=== PATIENT | female | born 1990 | race Caucasian/White ===

== ENCOUNTER 2024-09-12 21:57 | Emergency (ER) | payer OTHER, SELFPAY ==
[2024-09-12 21:59] VITALS: BP 124/75
[2024-09-12 22:27] LABS: % Basophils 0.5 % (0-2); % Immature Granulocytes 0.3 % (0-0.5); % Lymphocytes 17.9 % (20.5-51.1); % Monocytes 8.3 % (1.7-9.3); Absolute Basophils 0.1 10^3/uL (0-0.2); Absolute Eosinophils 0.2 10^3/uL (0-0.7); Absolute Lymphocytes 2.1 10^3/uL (1.2-3.4); Absolute Neutrophils 8.2 10^3/uL (1.4-6.5); Hematocrit 43.4 % (37.0-47.0); Hemoglobin 14.3 g/dL (12.0-16.0); Mean Corp Hgb Conc. 32.9 g/dL (33.0-37.0); Mean Corpuscular Hgb 28.6 pg (27.0-31.0); Mean Corpuscular Volume 86.8 fL (81.0-99.0); Mean Platelet Volume 9.7 fL (7.4-10.4); Nucleated Red Blood Cells % 0 %; Platelet Count 401 10^3/uL (130-400); Red Cell Dist. Width 14.3 % (11.5-14.5); White Blood Cell Count 11.6 10^3/uL (4.8-10.8)
[2024-09-12 22:43] LABS: HCG, Serum Qualitative Screen Negative
[2024-09-12 22:46] LABS: ALT (SGPT) 15 U/L (0-35); AST (SGOT) 23 U/L (14-36); Albumin 3.8 g/dl (3.5-5.0); Alkaline Phosphatase 102 U/L (38-126); Blood Urea Nitrogen 6 mg/dl (7-17); Calcium 9.5 mg/dl (8.4-10.2); Carbon Dioxide 27 mmol/L (22-30); Chloride 105 mmol/L (98-107); Glucose 105 mg/dl (70-99); Potassium 4.7 mmol/L (3.5-5.1); Sodium 137 mmol/L (135-145); Total Bilirubin 0.4 mg/dl (0.2-1.3); Total Protein 6.5 g/dl (6.3-8.2); eGFR > 60.00
--- NOTE | 2024-09-12 22:51 | ED.GENMED ---
History of Present Illness
General
Chief Complaint: Urinary Symptoms
Source: patient
Exam Limitations: none
Time Seen by Provider: 09/12/24 22:45
Nursing documentation reviewed up to this point in time: agreed with
History of Present Illness
History of Present Illness:
Patient to ED iwth complaint of right flank pain. Symptoms started this past week but worsened today. Taking OTC AZO without relief. Denies fever/chills. Has had pyelonephritis in the past and feels here symptoms are similar. Brought to ED by
spouse for eval.
Past History
Past History
ED Past Medical History: None
Review of Systems
Review of Systems
Allergies reviewed?: Yes
All Other Systems: ROS reviewed and negative except as documented in HPI and ROS
Constitutional: Reports no symptoms
EENT: Reports no symptoms
Respiratory: Reports no symptoms
Cardiac: Reports no symptoms
ABD/GI: Reports no symptoms
: Reports flank pain
Musculoskeletal: Reports no symptoms
Skin: Reports no symptoms
Neurological: Reports no symptoms
Psychiatric: Reports no symptoms
Phy Exam
General Physical Exam
General Presentation: mild distress
General age: appears stated age
General Skin: warm and dry
General Habitus: normal
General Mental: alert
General Hydration: appears well hydrated
Gastrointestinal Exam
Gastrointestinal Exam: normal bowel sounds, non tender, soft, no organomegaly and cva tenderness (right)
Musculoskeletal Exam
Musculoskeletal Exam: full ROM and neuro vasc intact
Skin Exam
Skin Exam: normal color, warm/dry and no rash
Psychiatric Exam
Psychiatric Exam: normal mood/affect
Course
Orders/Labs/Results
Orders:
Orders
09/12/24 22:04
Test Result ONCE
09/12/24 22:08
Complete Blood Count/With Diff Urgent
Comprehensive Metabolic Panel Urgent
HCG, Serum Qualitative Screen Urgent
09/12/24 22:50
CT Abd/pel Without Iv Or Oral Urgent
Comment:
Reason For Exam: right flank pain
Bladder Scan- Treatment ONCE
Ketorolac [Toradol] 30 mg IV NOW STA
09/12/24 23:25
Urinalysis Reflex To Culture Urgent
Date Specimen was Collected: 09/12/24
Time Specimen was Collected: 22:53
Urine Microscopic Reflex Cult Urgent
Urine Culture Urgent
FABI Source: U
Specimen Description:
Date Specimen was Collected: 09/12/24
Time Specimen was Collected: 22:53
09/13/24 00:28
Ciprofloxacin HCl [Cipro] 500 mg PO NOW STA
09/13/24 00:29
Phenazopyridine HCl [Pyridium] 200 mg PO NOW STA
Abnormal Lab Results
09/12/24 09/12/24
22:08 23:25
WBC 11.6 H 10^3/uL
(4.8-10.8)
MCHC 32.9 L g/dL
(33.0-37.0)
Plt Count 401 H 10^3/uL
(130-400)
Absolute Neuts (auto) 8.2 H 10^3/uL
(1.4-6.5)
Absolute Monos (auto) 1.0 H 10^3/uL
(0.1-0.6)
Lymphocytes % 17.9 L %
(20.5-51.1)
BUN 6 L mg/dl
(7-17)
Glucose 105 H mg/dl
(70-99)
Ur Occult Blood Reflex 4+ A
(Negative)
Urine Nitrite (Reflex) Positive A
(Negative)
Leukocyte Esterase Rfl 3+ A
(Negative)
Urine WBC (Reflex) >100 A /HPF
(0-5)
Urine Bacteria (Reflex) Many A
(Negative)
Urine Albumin (Reflex) 3+ A
(Neg - Trace)
09/12/24 22:08
09/12/24 22:08
Vital Signs
Initial and Last Documented VS:
Initial Vital Signs
Temp Pulse Resp BP Pulse Ox
97.7 F 102 18 124/75 99
09/12/24 21:59 09/12/24 21:59 09/12/24 21:59 09/12/24 21:59 09/12/24 21:59
Last Documented Vital Signs
Temp Pulse Resp BP Pulse Ox
97.7 F 81 16 110/67 99
09/12/24 21:59 09/13/24 00:17 09/13/24 00:17 09/13/24 00:17 09/13/24 00:17
*Radiology
Radiology exam reviewed: radiology read reviewed
*Pulse Oximetry
Patient hypoxic: no
*Critical Care Note
Total Time (30-74mins, 75-104mins- exclusive of procedures): Not Applicable
Update Note
Update Note:
No evidence of obstruction, renal stones, pyelonephritis on CT. UTI reflected by UA. WIll place on course of cipro which was initiated in ED. SHe remains afebrile. SHe is discharged home and will follow with PCP. Given instructions on s/s to
return to ED and she is agreeable to plan.
ED Attending Note
-
Portions of this chart may have been created with voice recognition software.� Occasional wrong word or��sound alike� substitutions may have occurred due to the inherent limitations of voice recognition software.
Discharge Plan
Departure
Patient Disposition: Home (Routine Discharge)
Date of Disposition: 09/13/24
Time of Disposition: 00:29
Patient with high blood pressure during this ER visit?: No
Condition: Good
Covid-19: Not Applicable
Discharge Problem:
UTI (urinary tract infection)
Instructions: Urinary Tract Infection, Adult (DC)
Prescriptions:
New
ciprofloxacin HCl [Cipro] 500 mg tablet
500 mg PO BID Qty: 10 0RF
phenazopyridine [Pyridium] 200 mg tablet
200 mg PO TID PRN (Reason: Pain) Qty: 6 0RF
Referrals:
NONE,* [Family Provider] -
Activity Restrictions/Additional Instructions:
Return to the emergency department immediately for any changes in/worsening of your symptoms
Interventions
Interventions:
*Risk Screen - Suicide Last Done: 09/12/24 21:59
*General Assessment Last Done: 09/12/24 21:59
*Neglect/Abuse Screening Last Done: 09/12/24 21:59
*ED- Fall Risk Assessment Last Done: 09/12/24 22:03
*ED COVID-19 Vaccine History Last Done: 09/12/24 22:03
*Nursing Disposition Last Done: 09/13/24 00:40
ED-Female Genitourinary Assessment Last Done: 09/12/24 23:06
Discharge Date and Time
Discharge Date/Time: 09/13/24 00:40
Print Language: LATVIAN
[2024-09-12] MEDS: TORADOL 30 MG IV (23:11)
[2024-09-12 23:54] LABS: Urine Albumin 3+ (Neg - Trace); Urine Bilirubin Negative (Negative); Urine Character Cloudy (Clear); Urine Color Yellow; Urine Glucose Negative (Negative); Urine Ketone Negative (Negative); Urine Leukocyte 3+ (Negative); Urine Nitrite Positive (Negative); Urine Occult Blood 4+ (Negative); Urine Urobilinogen 1+ (Neg - 1+)
[2024-09-13 00:09] LABS: Urine Amorphous Seen; Urine Squamous Cell SEEN /LPF (Few); Urine White Cell >100 /HPF (0-5)
[2024-09-13 00:11] LABS: Urine Bacteria Many (Negative)
[2024-09-13 00:12] LABS: Urine Urothelial Cell SEEN /LPF (FEW)
[2024-09-13 00:17] VITALS: BP 110/67
[2024-09-13] MEDS: Pyridium 200 MG PO (00:36)
[2024-09-13] MEDS: CIPRO 500 MG PO (00:36)
== END 2024-09-13 00:40 | disposition home or self-care (01) ==
LOC: EMR 21:57
PROVIDERS: Emergency Medicine; Nurse Practitioner; EMERGENCY PHYSICIAN Emergency Medicine
DX: N30.00 Acute cystitis without hematuria (principal)
CPT/HCPCS: 96374; 99284; 74176; 80053; 81003; 81015; 84703; 85025; 87077; 87086

== ENCOUNTER 2024-10-04 21:58 | Emergency (ER) | payer OTHER, SELFPAY ==
[2024-10-04 22:01] VITALS: BP 162/97
[2024-10-05] VITALS: BP 131/90
--- NOTE | 2024-10-05 00:10 | ED.GENMED ---
History of Present Illness
General
Chief Complaint: Abdominal Symptoms
Source: patient
Exam Limitations: none
Time Seen by Provider: 10/05/24 00:09
Nursing documentation reviewed up to this point in time: agreed with
History of Present Illness
History of Present Illness:
34-year-old female presents emergency department complaining of nausea vomiting and diarrhea. Took Zofran today but vomited up. She had a syncope episode, and called EMS.
Past History
Past History
ED Past Medical History: Other (Kidney infections with sepsis)
ED Past Surgical History: None
Social History
Tobacco: Non-smoker
Alcohol: None
Drug: None
Review of Systems
Review of Systems
Allergies reviewed?: Yes
All Other Systems: Not applicable
Constitutional: Reports chills
EENT: Reports no symptoms
Respiratory: Reports no symptoms
Cardiac: Reports syncope
ABD/GI: Reports vomiting and diarrhea
: Reports no symptoms
Musculoskeletal: Reports no symptoms
Skin: Reports no symptoms
Neurological: Reports no symptoms
Endocrine: Reports no symptoms
Hematologic/Lymphatic: Reports no symptoms
Psychiatric: Reports no symptoms
Phy Exam
Physical Exam
Physical Exam:
Physical Exam
General: no apparent distress, not acutely ill
Neck: supple. no meningeal signs. normal posterior pharynx
Heart: s1/s2 regular rate and rhythm, no murmur. equal radial
pulses.
HEENT: Pupils equal round reactive to light, EOMI
Lungs: no acute respiratory distress. clear bilaterally
Abdomen: normal bowel sounds. not tender. no CVAT
Neuro: alert and oriented. no focal neurological deficits cranial nerves II through XII intact
Skin: no rash
Psychiatric: well kept. interactive and cooperative
Extremities: no edema. no calf tenderness. negative homans. good distal pulses
Course
Orders/Labs/Results
Orders:
Orders
10/04/24 22:05
Electrocardiogram (*1) Urgent
Reason for Study: Chest Pain
EKG- Treatment ONCE
10/04/24 23:53
Complete Blood Count/With Diff Urgent
Comprehensive Metabolic Panel Urgent
HCG, Serum Qualitative Screen Urgent
10/04/24 23:54
Test Result ONCE
10/05/24 00:09
Urinalysis Reflex To Culture Urgent
10/05/24 00:22
0.9% Sodium Chloride 1000 ml [Nss] 1,000 ml IV BOLUS
10/05/24 00:56
Promethazine [Phenergan] 25 mg 0.9% Sodium Chloride 50 ml [Nss] 50 ml IV NOW
Abnormal Lab Results
10/05/24
00:13
WBC 14.7 H 10^3/uL
(4.8-10.8)
Abs Immat Gran (auto) 0.3 H 10^3/uL
(0-0.05)
Absolute Neuts (auto) 13.3 H 10^3/uL
(1.4-6.5)
Absolute Lymphs (auto) 0.9 L 10^3/uL
(1.2-3.4)
Immature Gran % 1.8 H %
(0-0.5)
Neutrophils % 90.6 H %
(42.2-75.2)
Lymphocytes % 5.8 L %
(20.5-51.1)
Monocytes % 1.6 L %
(1.7-9.3)
Glucose 135 H mg/dl
(70-99)
10/05/24 00:13
10/05/24 00:13
Vital Signs
Initial and Last Documented VS:
Initial Vital Signs
Temp Pulse Resp BP Pulse Ox
97.8 F 62 18 162/97 98
10/04/24 22:01 10/04/24 22:01 10/04/24 22:01 10/04/24 22:01 10/04/24 22:01
Last Documented Vital Signs
Temp Pulse Resp BP Pulse Ox
97.8 F 74 20 133/88 97
10/04/24 22:01 10/05/24 01:30 10/05/24 01:30 10/05/24 01:00 10/05/24 01:30
MDM/Problems Addressed
Differential Diagnosis Includes:
Appendicitis, gastroenteritis
MDM/Problems Addressed:
34-year-old female with nausea vomiting diarrhea. Syncope episode, likely vasovagal. Normal EKG. Improved after IV fluids and Phenergan. Stable for discharge. Abdomen exam benign. Return precautions given. Phenergan prescription given.
*Pulse Oximetry
Patient hypoxic: no
*EKG
Interpreted by ED Provider?: Yes
EKG Intrepretation Date: 10/05/24
EKG Intrepretation Time: 22:10
Interpretation: normal
Comparison EKG: no comparison EKG present
Heart Rate: 65
Rate: normal
Rhythm: sinus
[place]: normal axis
Interval: normal interval
QRS Pattern: normal QRS
Ischemia: no ischemia
*Trade Clerk Interpretation
Rate: normal
Interpretation: normal
Heart Rate: 66
Rhythm: sinus
*Critical Care Note
Total Time (30-74mins, 75-104mins- exclusive of procedures): Not Applicable
Data Reviewed
Review of Other/Old Records Reveals: Labs (Prior UTI 09/12/2024)
Source: records
ED Attending Note
-
Portions of this chart may have been created with voice recognition software.� Occasional wrong word or��sound alike� substitutions may have occurred due to the inherent limitations of voice recognition software.
Discharge Plan
Departure
Patient Disposition: Home (Routine Discharge)
Date of Disposition: 10/05/24
Time of Disposition: 02:00
Patient with high blood pressure during this ER visit?: Yes
Condition: Good
Discharge Problem:
Nausea vomiting and diarrhea
Instructions: Diarrhea in teens and adults, Nausea and Vomiting, Adult (DC), BLOOD PRESSURE
Prescriptions:
New
promethazine 25 mg tablet
25 mg PO QID PRN (Reason: nausea and vomiting) Qty: 10 0RF
No Action
fluoxetine 40 mg Capsule
80 mg PO DAILY
clonazepam 1 mg Tablet
1 mg PO BID
promethazine 25 mg Tablet
25 mg PO DAILY PRN (Reason: nausea and vomiting)
propranolol 20 mg Tablet
10 mg PO DAILY
Referrals:
NONE,* [Family Provider] -
Activity Restrictions/Additional Instructions:
Return for any concerns. Follow-up with primary care in 3 to 5 days.
Interventions
Interventions:
*Risk Screen - Suicide Last Done: 10/04/24 22:03
*General Assessment Last Done: 10/04/24 22:03
*Neglect/Abuse Screening Last Done: 10/04/24 22:03
*ED COVID-19 Vaccine History Last Done: 10/04/24 22:03
EM-Kcptse-Lvgyztijlv Assessment Last Done: 10/05/24 00:15
Discharge Date and Time
Print Language: YI
[2024-10-05 00:29] LABS: % Basophils 0.2 % (0-2); % Immature Granulocytes 1.8 % (0-0.5); % Lymphocytes 5.8 % (20.5-51.1); % Monocytes 1.6 % (1.7-9.3); % Neutrophils 90.6 % (42.2-75.2); Absolute Immature Granulocytes 0.3 10^3/uL (0-0.05); Absolute Lymphocytes 0.9 10^3/uL (1.2-3.4); Absolute Monocytes 0.2 10^3/uL (0.1-0.6); Absolute Neutrophils 13.3 10^3/uL (1.4-6.5); Hematocrit 43.6 % (37.0-47.0); Hemoglobin 14.6 g/dL (12.0-16.0); Mean Corp Hgb Conc. 33.5 g/dL (33.0-37.0); Mean Corpuscular Hgb 28.9 pg (27.0-31.0); Mean Corpuscular Volume 86.2 fL (81.0-99.0); Mean Platelet Volume 9.4 fL (7.4-10.4); Nucleated Red Blood Cells % 0 %; Platelet Count 363 10^3/uL (130-400); Red Blood Cell Count 5.06 10^6/uL (4.20-5.40); Red Cell Dist. Width 14.5 % (11.5-14.5); White Blood Cell Count 14.7 10^3/uL (4.8-10.8)
[2024-10-05 00:32] LABS: ALT (SGPT) 20 U/L (0-35); AST (SGOT) 25 U/L (14-36); Albumin 4.2 g/dl (3.5-5.0); Alkaline Phosphatase 90 U/L (38-126); Blood Urea Nitrogen 10 mg/dl (7-17); Calcium 9.3 mg/dl (8.4-10.2); Carbon Dioxide 25 mmol/L (22-30); Chloride 105 mmol/L (98-107); Glucose 135 mg/dl (70-99); HCG, Serum Qualitative Screen Negative; Potassium 4.5 mmol/L (3.5-5.1); Sodium 135 mmol/L (135-145); Total Bilirubin 0.8 mg/dl (0.2-1.3); Total Protein 6.9 g/dl (6.3-8.2); eGFR > 60.00
[2024-10-05] MEDS: NSS 1000 IV (00:45)
[2024-10-05 01:00] VITALS: BP 133/88
[2024-10-05] MEDS: PHENERGAN 51 MG IV (01:14)
[2024-10-05 02:00] VITALS: BP 139/91
[2024-10-05 02:32] VITALS: BP 112/77
[2024-10-05 03:00] VITALS: BP 128/83
[2024-10-05 03:04] LABS: Urine Albumin Negative (Neg - Trace); Urine Bilirubin Negative (Negative); Urine Character Clear (Clear); Urine Color Yellow; Urine Glucose Negative (Negative); Urine Ketone 2+ (Negative); Urine Leukocyte Negative (Negative); Urine Nitrite Negative (Negative); Urine Occult Blood 4+ (Negative); Urine Urobilinogen Negative (Neg - 1+)
[2024-10-05 03:39] LABS: Urine Bacteria Moderate (Negative)
[2024-10-05 04:00] VITALS: BP 123/72
== END 2024-10-05 06:10 | disposition home or self-care (01) ==
LOC: EMR 21:58
PROVIDERS: Emergency Medicine; EMERGENCY PHYSICIAN Emergency Medicine
DX: R11.2 Nausea with vomiting, unspecified (principal); R19.7 Diarrhea, unspecified
CPT/HCPCS: 99284; 96365; 80053; 81003; 81015; 84703; 85025; 87077; 87086; 93005